=== PATIENT | female | born 1975 | race Caucasian/White ===

== ENCOUNTER 2024-03-06 09:56 | Emergency (ER) | payer BC, SELFPAY ==
[2024-03-06] VITALS (7 sets, daily range): BP systolic 101–133; BP diastolic 70–86; BMI 20.5
--- NOTE | 2024-03-06 10:41 | ED.GENMED ---
History of Present Illness
General
Chief Complaint: Abdominal Pain
Source: patient
Time Seen by Provider: 03/06/24 10:11
History of Present Illness
History of Present Illness:
48yoF with no significant past medical history presenting for evaluation of abdominal pain. She reports periumbilical and RLQ pain x 8 days. The pain is describes as a pressure and a sharp pain. Pain has been gradually worsening. The pain is worse
with movement and position changes. She started to develop loose stools, nausea, decreased appetite, and subjective fevers about 2 days ago. She was seen by her PCP yesterday who ordered a CT scan for concern for appendicitis. She was unable to
schedule the CT scan today so her PCP advised her to go to the ED for evaluation. She is otherwise asymptomatic and denies any dysuria, vaginal bleeding, vaginal discharge, chest pain, shortness of breath. Previous abdominal surgeries include a
gastric sleeve, section, tummy tuck, and liposuction.
Phy Exam
General Physical Exam
General Presentation: well appearing and no apparent distress
General age: appears stated age
General Skin: warm and dry
General Habitus: normal
General Mental: alert
Cardiovascular Exam
Cardiovascular Exam: regular rate/rhythm and no murmur
Pulmonary Exam
Pulmonary Exam: lungs clear, no respiratory distress, no crackles and no wheezing
Gastrointestinal Exam
Gastrointestinal Exam: normal bowel sounds, soft, non distended and tender (Mild tenderness in suprapubic region. No focal tenderness in RLQ. No rigidity, guarding, or rebound tenderness. )
[place] Coma Scale
Eye Opening: Spontaneous
Verbal Response: Oriented
Motor Response: Obeys Commands
GCS Total Score: 15
Skin Exam
Skin Exam: normal color and warm/dry
Psychiatric Exam
Psychiatric Exam: normal mood/affect
Course
Orders/Labs/Results
Orders:
Orders
03/06/24 10:47
Test Result ONCE
03/06/24 10:55
Iohexol [Omnipaque] See Protocol PO NOW STA
03/06/24 10:56
CT Abd/pel W Iv And Oral Contr Urgent
Comment:
Reason For Exam: RLQ pain, periumbilical pain
03/06/24 11:01
Complete Blood Count/With Diff Urgent
Comprehensive Metabolic Panel Urgent
HCG, Serum Qualitative Screen Urgent
Lipase Urgent
Abnormal Lab Results
03/06/24
11:01
WBC 3.7 L 10^3/uL
(4.8-10.8)
RBC 3.94 L 10^6/uL
(4.20-5.40)
Hct 34.7 L %
(37.0-47.0)
Monocytes % 9.7 H %
(1.7-9.3)
03/06/24 11:01
03/06/24 11:01
Vital Signs
Initial and Last Documented VS:
Initial Vital Signs
Temp BP Pulse Ox
98.0 F 133/86 100
03/06/24 09:59 03/06/24 09:59 03/06/24 09:59
Last Documented Vital Signs
Temp Pulse Resp BP Pulse Ox
98.0 F 64 20 107/72 99
03/06/24 09:59 03/06/24 14:41 03/06/24 14:41 03/06/24 14:41 03/06/24 10:37
MDM/Problems Addressed
Differential Diagnosis Includes:
48yoF here with periumbilical and RLQ pain x 8 days. Associated with loose stools, subjective fevers, decreased appetite. She is afebrile and hemodynamically stable. She is well appearing in no distress. No signs of peritonitis on abdominal exam.
Differential diagnosis includes but is not limited to: appendicitis, mesenteric adenitis, colitis, musculoskeletal, ovarian cyst, nonspecific abdominal pain
Initial ED plan: Check abdominal labs, HCG, and CT abdomen.
*Critical Care Note
Total Time (30-74mins, 75-104mins- exclusive of procedures): Not Applicable
Update Note
Update Note:
Labs overall unremarkable other than a mild leukopenia which is nonspecific. Electrolytes, renal function, LFTs, lipase normal. HCG negative. CT abdomen is negative for acute findings. Specifically, there is no evidence of appendicitis. She is
stable for discharge. Advised f/u with PCP and GI. ED return precautions discussed. She was discharged in stable condition.
ED Attending Note
-
Portions of this chart may have been created with voice recognition software.� Occasional wrong word or��sound alike� substitutions may have occurred due to the inherent limitations of voice recognition software.
Discharge Plan
Departure
Patient Disposition: Home (Routine Discharge)
Date of Disposition: 03/06/24
Time of Disposition: 14:33
Patient with high blood pressure during this ER visit?: No
Discharge Problem:
Nonspecific abdominal pain
Instructions: Abdominal Pain
Prescriptions:
No Action
No Current Medications
0
Referrals:
DoRachel MD [Active] -
UNKNOWN - PT DOES,NOT KNOW [Family Provider] -
Activity Restrictions/Additional Instructions:
Please follow-up with your family doctor and gastroenterology. Return to the ER with any new or worsening symptoms.
Interventions
Interventions:
*Risk Screen - Suicide Last Done: 03/06/24 10:03
*General Assessment Last Done: 03/06/24 10:03
*Neglect/Abuse Screening Last Done: 03/06/24 10:03
*Nursing Disposition Last Done: 03/06/24 14:41
[facility] Assessment Last Done: 03/06/24 10:36
Discharge Date and Time
Discharge Date/Time: 03/06/24 14:41
Print Language: [place]OT[place]
[2024-03-06 11:18] LABS: % Basophils 0.5 % (0-2); % Lymphocytes 38.9 % (20.5-51.1); % Monocytes 9.7 % (1.7-9.3); % Neutrophils 50.9 % (42.2-75.2); Absolute Lymphocytes 1.5 10^3/uL (1.2-3.4); Absolute Monocytes 0.4 10^3/uL (0.1-0.6); Absolute Neutrophils 1.9 10^3/uL (1.4-6.5); Hematocrit 34.7 % (37.0-47.0); Hemoglobin 12.2 g/dL (12.0-16.0); Mean Corp Hgb Conc. 35.2 g/dL (33.0-37.0); Mean Corpuscular Volume 88.1 fL (81.0-99.0); Mean Platelet Volume 10.3 fL (7.4-10.4); Nucleated Red Blood Cells % 0 %; Platelet Count 251 10^3/uL (130-400); Red Blood Cell Count 3.94 10^6/uL (4.20-5.40); Red Cell Dist. Width 12.7 % (11.5-14.5); White Blood Cell Count 3.7 10^3/uL (4.8-10.8)
[2024-03-06] MEDS: OMNIPAQUE 50 ML PO (11:18)
[2024-03-06 11:28] LABS: HCG, Serum Qualitative Screen Negative
[2024-03-06 11:31] LABS: ALT (SGPT) 13 U/L (0-35); AST (SGOT) 22 U/L (14-36); Albumin 4.1 g/dl (3.5-5.0); Alkaline Phosphatase 50 U/L (38-126); Blood Urea Nitrogen 12 mg/dl (7-17); Calcium 9.3 mg/dl (8.4-10.2); Carbon Dioxide 26 mmol/L (22-30); Chloride 105 mmol/L (98-107); Estimated Creatinine Clearance 91 ml/min; Glucose 84 mg/dl (70-99); Lipase 59 U/L (23-300); Potassium 4.4 mmol/L (3.5-5.1); Sodium 137 mmol/L (135-145); Total Protein 6.5 g/dl (6.3-8.2); eGFR > 60.00
== END 2024-03-06 14:41 | disposition home or self-care (01) ==
LOC: EMR 09:56
PROVIDERS: Physician Assistant; EMERGENCY PHYSICIAN Emergency Medicine
DX: R10.31 Right lower quadrant pain (principal); R10.33 Periumbilical pain; R11.0 Nausea; R50.9 Fever, unspecified
CPT/HCPCS: 99285; 74177; 80053; 83690; 84703; 85025; Q9967